=== PATIENT | male | born 1960 | race Caucasian/White ===

== ENCOUNTER 2017-09-26 20:40 | Emergency (ER) | payer BC ==
[~2017-09-26] VITALS: Ht 185.4 cm; Wt 74.8 kg
[~2017-09-26 20:40] MED LIST: ALPR.5 PO; CARV6.25 PO; MODA200 PO; OXYC5 PO; PHENY100ER PO; Prinivil10 MG PO; WARF5 PO
[2017-09-26 21:23] LABS: BASOPHILS ABSOLUTE AUTO 0.04 K/mm3 (0.00-0.23); BASOPHILS PERCENT AUTO 0 % (0-2); EOSINOPHILS ABSOLUTE AUTO 0.63 K/mm3 (0.00-0.68); EOSINOPHILS PERCENT AUTO 6 % (0-6); Hematocrit 43.5 % (37.0-53.0); Hemoglobin 14.6 g/dL (13.5-17.5); IMMATURE GRAN ABSOLUTE AUTO 0.03 K/mm3 (0.00-0.10); IMMATURE GRAN PERCENT AUTO 0 % (0-1); LYMPHOCYTES ABSOLUTE AUTO 3.55 K/mm3 (0.84-5.20); LYMPHOCYTES PERCENT AUTO 35 % (21-46); MONOCYTES ABSOLUTE AUTO 0.74 K/mm3 (0.16-1.47); MONOCYTES PERCENT AUTO 7 % (4-13); Mean Corpuscular HGB 30.4 pg (26.0-34.0); Mean Corpuscular HGB Conc 33.6 g/dL (31.5-36.5); Mean Corpuscular Volume 90 fL (80-100); Mean Platelet Volume 10.9 fL (9.1-12.4); NEUTROPHILS ABSOLUTE AUTO 5.07 K/mm3 (1.96-9.15); NEUTROPHILS PERCENT AUTO 50 % (41-73); Platelet Count 249 K/mm3 (150-400); RDW Coefficient Variation 13.9 % (11.7-14.2); RDW Standard Deviation 46.4 fL (35.1-46.3); Red Blood Cell Count 4.81 M/mm3 (4.30-5.90); White Blood Cell Count 10.06 K/mm3 (4.00-11.30)
[2017-09-26 21:35] LABS: Alanine Aminotransfer (ALT/SGP 25 U/L (12-78); Albumin, Blood 3.7 g/dL (3.4-5.0); Albumin/Globulin Ratio 0.9 (0.8-1.8); Alk Phos 70 U/L (50-136); Anion Gap 10 mmol/L (6-16); Aspartate Aminotrans (AST/SGOT 28 U/L (12-37); Bilirubin, Total 0.3 mg/dL (0.1-1.0); Blood Urea Nitrogen 16 mg/dL (8-24); Bun/Creatinine Ratio 27.3 (12.0-20.0); CO2, Blood 26 mmol/L (21-32); Calcium, Blood 8.6 mg/dL (8.5-10.1); Chloride, Blood 105 mmol/L (98-108); Creatinine, Blood 0.59 mg/dL (0.60-1.20); Ethanol (Alcohol), Blood, Med 243 mg/dL; Globulin, Blood 4.1 g/dL (2.2-4.0); Glomerular Filtration Rate >60 (60-); Glucose, Blood 95 mg/dL (70-99); Potassium, Blood 3.5 mmol/L (3.5-5.5); Sodium, Blood 141 mmol/L (136-145); Total Protein, Blood 7.8 g/dL (6.4-8.2)
== END 2017-09-26 23:24 | disposition home or self-care (01) ==
LOC: ER 20:40
PROVIDERS: Emergency Medicine
DX: F10.129 Alcohol abuse with intoxication, unspecified (principal); S09.90XA Unspecified injury of head, initial encounter; I10 Essential (primary) hypertension; F17.220 Nicotine dependence, chewing tobacco, uncomplicated; Z79.899 Other long term (current) drug therapy; Z86.73 Personal history of transient ischemic attack (TIA), and cerebral infarction without residual deficits; Y90.8 Blood alcohol level of 240 mg/100 ml or more; W22.8XXA Striking against or struck by other objects, initial encounter
CPT/HCPCS: 70450; 80053; 82947; 85025; 93005; 93010; 99284; G0480

== ENCOUNTER 2022-03-27 04:18 | Inpatient (IN) | payer MEDICARE ==
[~2022-03-27] VITALS: Ht 182.9 cm; Wt 72.6 kg
[2022-03-27 04:55] LABS: BASOPHILS ABSOLUTE AUTO 0.04 K/mm3 (0.00-0.23); BASOPHILS PERCENT AUTO 0 % (0-2); EOSINOPHILS ABSOLUTE AUTO 0.01 K/mm3 (0.00-0.68); EOSINOPHILS PERCENT AUTO 0 % (0-6); Hematocrit 46.6 % (37.0-53.0); Hemoglobin 15.8 g/dL (13.5-17.5); IMMATURE GRAN ABSOLUTE AUTO 0.13 K/mm3 (0.00-0.10); IMMATURE GRAN PERCENT AUTO 1 % (0-1); LYMPHOCYTES PERCENT AUTO 7 % (21-46); MONOCYTES ABSOLUTE AUTO 2.18 K/mm3 (0.16-1.47); MONOCYTES PERCENT AUTO 11 % (4-13); Mean Corpuscular HGB 30.6 pg (26.0-34.0); Mean Corpuscular HGB Conc 33.9 g/dL (31.5-36.5); Mean Corpuscular Volume 90 fL (80-100); Mean Platelet Volume 11.3 fL (9.1-12.4); NEUTROPHILS ABSOLUTE AUTO 16.61 K/mm3 (1.96-9.15); NEUTROPHILS PERCENT AUTO 81 % (41-73); Platelet Count 252 K/mm3 (150-400); RDW Coefficient Variation 12.9 % (11.7-14.2); Red Blood Cell Count 5.16 M/mm3 (4.30-5.90); White Blood Cell Count 20.47 K/mm3 (4.00-11.30)
[2022-03-27] MEDS ORDERED: WARF1 PO (05:10)
[2022-03-27] MEDS ORDERED: QUET25 PO (05:10)
[2022-03-27] MEDS ORDERED: Prinivil10 MG PO (05:10)
[2022-03-27] MEDS ORDERED: LEVSOD75 PO (05:11)
[2022-03-27] MEDS ORDERED: IMIP25 PO (05:11)
[2022-03-27 05:16] LABS: Source, Urine Straight Cath
[2022-03-27 05:18] LABS: Albumin, Blood 3.5 g/dL (3.4-5.0); Albumin/Globulin Ratio 0.8 (0.8-1.8); Bun/Creatinine Ratio 30.9 (12.0-20.0); Calcium, Blood 10.7 mg/dL (8.5-10.1); Creatinine, Blood 0.97 mg/dL (0.60-1.20); Globulin, Blood 4.6 g/dL (2.2-4.0); Potassium, Blood 4.1 mmol/L (3.5-5.5); Total Protein, Blood 8.1 g/dL (6.4-8.2)
[2022-03-27 05:50] LABS: Appearance, Urine Bloody (Clear); Bilirubin, Urine Neg (Neg); Blood, Urine 5+ (Neg); Color, Urine Red (P-Yellow); Glucose Qualitative, Urine Neg (Neg); Ketones, Urine 2+ (Neg); Leukocyte Esterase, Urine Neg (Neg); Nitrite, Urine Neg (Neg); Protein, Urine 4+ (Neg); Specific Gravity, Urine 1.015 (1.003-1.022); Urobilinogen, Urine NORM (Normal)
[2022-03-27 05:56] LABS: Red Blood Cells, Urine TNTC /hpf (0-2)
[2022-03-27 05:57] LABS: Bacteria Few /hpf; Squamous Epithelial Cells Not Seen /hpf (Few)
[2022-03-27 07:22] LABS: Prothrombin Time Results >90.0 Sec (9.7-11.5)
[2022-03-27 07:25] LABS: International Normalized Ratio >10.00
--- NOTE | 2022-03-27 10:47 | NUR ---
ASSUMED CARE OF PATIENT AT 0910 UPON HIS ARRIVAL VIA GURNEY FROM ER, ACCOMPANIED BY . COMFORT CARE/ DNR. AFTER TRANSFER TO HOSPITAL BED, BEGAN TO EXHIBIT SEIZURE ACTIVITY WITH MILD GENERALIZED TREMORS; TURNED PT TO HIS LEFT SIDE, HAD NASAL TRUMPET IN PLACE TO PROTECT AIRWAY. ATIVAN ORDERED PO; PHARMACIST CHANGED THIS TO IV FOR IMMEDIATE USE FOR SEIZURE. ATIVAN AND ROXANOL GIVEN WITH SEIZURE ACTIVITY RESOLVED. APPEARED CALM, HAVING IRREGULAR/APNEIC BREATHING, SUCTIONED FOR SCANT AMOUNT OF BLOOD TINGED SECRETIONS. AT BEDSIDE. SEVERE MOTTLING NOTED ON BLE, LIPS CYANOTIC. AT ~1015, PT EXHIBITED SEIZURE ACTIVITY AGAIN WITH MILD GENERALIZED TREMORS. NOTIFIED DR. GORDON, REQUESTED AND RECEIVED ADDITIONAL MEDICATION ORDER. PALLIATIVE CARE Lolis MOY AT BEDSIDE FOR ADDITIONAL SUPPORT. PATIENT AT 1028 WITH AND OTHER FAMILY AT BEDSIDE.
== END 2022-03-27 10:28 | DRG 64 ==
LOC: ER 04:18 → MEDS 06:20 → ICUW 06:20 → ER 06:20 → MEDS 09:10
PROVIDERS: Emergency Medicine; ADMIT Internal Medicine
DX: I61.8 Other nontraumatic intracerebral hemorrhage (principal); G93.5 Compression of brain; G93.6 Cerebral edema; G93.40 Encephalopathy, unspecified; I69.354 Hemiplegia and hemiparesis following cerebral infarction affecting left non-dominant side; Z66 Do not resuscitate; Z51.5 Encounter for palliative care; R56.9 Unspecified convulsions; R31.9 Hematuria, unspecified; R79.1 Abnormal coagulation profile; D72.829 Elevated white blood cell count, unspecified; E83.52 Hypercalcemia; I10 Essential (primary) hypertension; E03.9 Hypothyroidism, unspecified; F17.220 Nicotine dependence, chewing tobacco, uncomplicated; Z79.01 Long term (current) use of anticoagulants; Z79.899 Other long term (current) drug therapy; Z79.811 Long term (current) use of aromatase inhibitors; Z91.013 Allergy to seafood; Z98.890 Other specified postprocedural states
CPT/HCPCS: 31720; 36415; 70450; 71045; 80053; 81001; 83605; 85025; 85610; 87086; 93005; 93010; 96374; 96375; 96376; 99285-25; A9270; J0295; J0696; J1953; J2060; J2405; J3360; J7030